=== PATIENT | male | born 1945 | race Caucasian/White ===

== ENCOUNTER 2016-12-25 06:30 | Emergency (ER) | payer MEDICARE ==
[~2016-12-25] VITALS: Ht 172.7 cm; Wt 65.8 kg
[~2016-12-25 06:30] MED LIST: UNOBMED
[2016-12-25] MEDS ORDERED: Albuterol ud Inhalation ONE (06:36)
--- NOTE | 2016-12-25 06:38 | Emergency Room Report ---
History of Present Illness General Chief Complaint: Dyspnea/Respdistress Source: Patient Present Illness HPI Patient is an 71-year-old male who presented after increased difficulty breathing. Patient prior history of COPD. The patient is a former smoker. He reported having recently been using crystal meth. The patient states uses oxygen 4 L throughout the day. He had not been having fever. He reports having a moderate shortness of breath. This is worsened by supine position. He reported having some increased cough. The patient brought in by EMS. Allergies: Coded Allergies: No Known Allergies (Unverified , 12/25/16) Patient History Past Medical History: COPD Reviewed Nursing Documentation: PMH: Agreed, PSxH: Agreed Nursing Documentation-PMH Past Medical History: No History, Except For Hx Cardiac Problems: Yes Hx Hypertension: Yes Hx COPD: Yes - emphysema Hx Cancer: Yes - lung Review of Systems All Other Systems: limited - by poor historian Physical Exam Vital Signs Date Time Temp Pulse Resp B/P (MAP) Pulse Ox O2 Delivery O2 Flow Rate FiO2 12/25/16 06:24 130 180/99 97 Nasal Cannula 4.0 Sp02 EP Interpretation: reviewed, normal General Appearance: normal inspection, alert, moderate distress, Chronically Ill Head: atraumatic ENT: normal ENT inspection, hearing grossly normal, normal voice Neck: normal inspection, full range of motion, supple, no bony tend Respiratory: normal inspection, respiratory distress, accessory muscle use, wheezing Cardiovascular #1: no edema, tachycardia Gastrointestinal: normal inspection, normal bowel sounds, non tender, soft, no guarding, no hernia Genitourinary: no CVA tenderness Musculoskeletal: normal inspection, back normal, normal range of motion Neurologic: normal inspection, alert, oriented x3, responsive, scada engineer III-XII nml as tested, speech normal Psychiatric: normal inspection, judgement/insight normal, mood/affect normal Skin: normal inspection, normal color, no rash Medical Decision Making Diagnostic Impression: Primary Impression: Respiratory distress Additional Impressions: COPD (chronic obstructive pulmonary disease) CHF exacerbation Substance abuse ER Course Patient presented for shortness of breath. Differential included but was not limited to anemia, pneumonia, pneumothorax, myocardial infarction, pericardial effusion, congestive heart failure, acidosis. Because of complexity of patient' s case laboratory testing and imaging studies were ordered.Patient was given breathing treatments as well as IV Lasix. Patient was noted to have some productive cough or started on IV antibiotics. I EKG showed sinus tachycardia with a rate in the 130s initially. The patient was noted to have some improvement after oxygen supplementation. Chest x-ray read by radiology showed Findings: Prominent interstitial opacities are seen throughout the right lung, particularly right upper lobe, at the left lung base. The pleural spaces are clear. The heart size is normal. Aorta is calcified. Upper mediastinum is unremarkable. Impression: Bilateral interstitial disease, acuity indeterminate although suspect chronic. patient was discussed with [facility] for continuity of care. Labs Test 12/25/16 07:00 White Blood Count 11.3 K/UL (4.8-10.8) Red Blood Count 3.84 M/UL (4.70-6.10) Hemoglobin 11.5 G/DL (14.2-18.0) Hematocrit 35.3 % (42.0-52.0) Mean Corpuscular Volume 92 FL (80-99) Mean Corpuscular Hemoglobin 30.0 PG (27.0-31.0) Mean Corpuscular Hemoglobin Concent 32.7 G/DL (32.0-36.0) Red Cell Distribution Width 15.3 % (11.6-14.8) Platelet Count 267 K/UL (150-450) Mean Platelet Volume 6.4 FL (6.5-10.1) Neutrophils (%) (Auto) 82.2 % (45.0-75.0) Lymphocytes (%) (Auto) 6.3 % (20.0-45.0) Monocytes (%) (Auto) 10.8 % (1.0-10.0) Eosinophils (%) (Auto) 0.2 % (0.0-3.0) Basophils (%) (Auto) 0.5 % (0.0-2.0) Prothrombin Time 11.8 SEC (9.30-11.50) Prothromb Time International Ratio 1.1 (0.9-1.1) Activated Partial Thromboplast Time 43 SEC (23-33) Arterial Blood pH 7.420 (7.350-7.450) Arterial Blood Partial Pressure CO2 33.7 mmHg (35.0-45.0) Arterial Blood Partial Pressure O2 99.2 mmHg (75.0-100.0) Arterial Blood HCO3 21.4 mmol/L (22.0-26.0) Arterial Blood Oxygen Saturation 96.9 % (92.0-98.0) Arterial Blood Base Excess -2.3 Cj Test Positive Sodium Level 138 mEQ/L (135-145) Potassium Level 3.9 mEQ/L (3.4-4.9) Chloride Level 94 mEQ/L (98-107) Carbon Dioxide Level 20 mEQ/L (20-30) Anion Gap 24 (5-15) Blood Urea Nitrogen 25 mg/dL (7-23) Creatinine 1.6 mg/dL (0.7-1.2) Estimat Glomerular Filtration Rate mL/min (>60) Glucose Level 78 mg/dL (74-106) Lactic Acid Level 1.10 mmol/L (0.66-2.22) Calcium Level 8.5 mg/dL (8.6-10.2) Total Bilirubin 0.5 mg/dL (0.0-1.2) Aspartate Amino Transf (AST/SGOT) 28 U/L (5-40) Alanine Aminotransferase (ALT/SGPT) 16 U/L (3-41) Alkaline Phosphatase 65 U/L (40-129) Total Creatine Kinase 73 U/L (38-174) Creatine Kinase MB 4.1 ng/mL (< 6.7) Creatine Kinase MB Relative Index 5.6 Troponin I < 0.30 ng/mL (<=0.30) Pro-B-Type Natriuretic Peptide 17978 pg/mL (0-125) Total Protein 6.0 g/dL (6.6-8.7) Albumin 2.9 g/dL (3.5-5.2) Globulin 3.1 g/dL Albumin/Globulin Ratio 0.9 (1.0-2.7) EKG Diagnostic Results Rate: tachycardiac Rhythm: NSR ST Segments: no acute changes ASA given to the pt in ED: No Rhythm Strip Diag. Results EP Interpretation: yes Rhythm: no PVC's, no ectopy Chest X-Ray Diagnostic Results Chest X-Ray Diagnostic Results : Chest X-Ray Ordered: Yes # of Views/Limited/Complete: 1 View Indication: Shortness of Breath EP Interpretation: No Last Vital Signs Date Time Temp Pulse Resp B/P (MAP) Pulse Ox O2 Delivery O2 Flow Rate FiO2 12/25/16 06:24 130 180/99 97 Nasal Cannula 4.0 Status: unchanged Disposition: ADMITTED INPATIENT Condition: Serious Edinson Santiago Dec 25, 2016 06:38
[2016-12-25] MEDS ORDERED: Cefepime HCl 1 GM in NS 55 ML IV SCH (06:45)
[2016-12-25] MEDS ORDERED: Solu-MEDROL 125mg Inj IVP ONE (06:45)
[2016-12-25] MEDS ORDERED: metroNIDAZOLE 500mg 100 ML IV SCH (06:45)
[2016-12-25] MEDS ORDERED: DuoNeb 0.5-3(2.5)mg/3ml neb HHN ONE ×2 (06:45→09:30)
[2016-12-25 07:01] LABS: ABG ALLEN TEST POSITIVE; ABG BASE EXCESS -2.3; ABG PCO2 33.7 mmHg (35.0-45.0)
[2016-12-25 07:51] LABS: BASOPHILS % (AUTO) 0.5 % (0.0-2.0); EOSINOPHILS % (AUTO) 0.2 % (0.0-3.0); LYMPHOCYTES % (AUTO) 6.3 % (20.0-45.0); MEAN CORPUSCULAR HGB CONC 32.7 G/DL (32.0-36.0); MEAN CORPUSCULAR VOLUME 92 FL (80-99); MEAN PLATELET VOLUME 6.4 FL (6.5-10.1); MONOCYTES % (AUTO) 10.8 % (1.0-10.0); NEUTROPHILS % (AUTO) 82.2 % (45.0-75.0); PLATELET COUNT 267 K/UL (150-450); RED BLOOD COUNT 3.84 M/UL (4.70-6.10); RED CELL DISTRIBUTION WIDTH 15.3 % (11.6-14.8); WHITE BLOOD COUNT 11.3 K/UL (4.8-10.8)
[2016-12-25 07:53] LABS: INR 1.1 (0.9-1.1); PROTHROMBIN TIME 11.8 SEC (9.30-11.50)
[2016-12-25 07:54] LABS: ALANINE AMINOTRANSFERASE 16 U/L (3-41); ALBUMIN/GLOBULIN RATIO 0.9 (1.0-2.7); ANION GAP 24 (5-15); ASPARTATE AMINO TRANSFERASE 28 U/L (5-40); CALCIUM 8.5 mg/dL (8.6-10.2); CARBON DIOXIDE 20 mEQ/L (20-30); CHLORIDE 94 mEQ/L (98-107); CREATININE 1.6 mg/dL (0.7-1.2); HEMOLYSIS 0; POTASSIUM 3.9 mEQ/L (3.4-4.9); SODIUM 138 mEQ/L (135-145)
[2016-12-25 07:55] LABS: TROPONIN I < 0.30 ng/mL (<=0.30)
[2016-12-25 08:07] LABS: CKMB 4.1 ng/mL (< 6.7)
[2016-12-25] MEDS ORDERED: Cefepime 1gm vial ONE (08:15)
[2016-12-25 08:18] VITALS: BP 143/73
[2016-12-25 09:13] LABS: APPEARANCE,URINE CLEAR; KETONES,URINE 3+ (NEGATIVE); LEUKOCYTE ESTERASE ,URINE NEGATIVE (NEGATIVE); NITRITE,URINE NEGATIVE (NEGATIVE); PH,URINE 5 (4.5-8.0); PROTEIN,URINE 3+ (NEGATIVE); UROBILINOGEN,URINE NORMAL MG/DL (0.0-1.0)
[2016-12-25 09:30] LABS: BACTERIA,URINE FEW /HPF; SQUAMOUS EPITHELIAL CELL,UR FEW /LPF (NONE/OCC)
[2016-12-25 10:06] VITALS: BP 134/78
[2016-12-25 11:18] VITALS: BP 114/76
[2016-12-25 12:01] VITALS: BP 114/76
--- NOTE | 2016-12-25 15:56 | Diagnostic Imaging Report ---
Indication: SOB Technique: One view of the chest Comparison: none Findings: Prominent interstitial opacities are seen throughout the right lung, particularly right upper lobe, at the left lung base. The pleural spaces are clear. The heart size is normal. Aorta is calcified. Upper mediastinum is unremarkable. Impression: Bilateral interstitial disease, acuity indeterminate although suspect chronic. Correlate with clinical findings.
== END 2016-12-25 12:01 | disposition short-term general hospital (02) ==
LOC: EDBD 06:30 → EMR 07:20 → CANBEDREQ 10:56 → EMR 12:01
DX: R06.00 Dyspnea, unspecified (principal); J44.9 Chronic obstructive pulmonary disease, unspecified; I11.0 Hypertensive heart disease with heart failure; I50.9 Heart failure, unspecified; F19.10 Other psychoactive substance abuse, uncomplicated; Z85.118 Personal history of other malignant neoplasm of bronchus and lung; Z87.891 Personal history of nicotine dependence; Z99.81 Dependence on supplemental oxygen; R00.0 Tachycardia, unspecified
CPT/HCPCS: 36415; 36600; 71010; 80053; 81003; 82550; 82553; 82803; 83605; 83880; 84484; 85025; 85610; 85730; 87040; 87070; 87181; 87205; 93005; 94640; 94664; 96361; 96365; 96366; 96375; 99285; J0692; J1940; J2930; J7620